=== PATIENT | male | born 1975 | race Caucasian/White ===

== ENCOUNTER 2017-10-31 07:06 | Inpatient (IN) | payer BC ==
[2017-10-31] MEDS ORDERED: LORazepam INJ* 2 MG/ML 1 ML VIAL IV ONE (08:36)
[2017-10-31] MEDS ORDERED: Thiamine IV 100 MG, Folic Acid IV* 1 MG, Multiple Vitamin IV ADULT* 10 ML in NS 0.9% 10... IV ONE ×2 (08:36→09:00)
[2017-10-31] MEDS ORDERED: NS 0.9% 1000 ML* 1,000 ML IV ONE (08:36)
[2017-10-31 08:56] LABS: ABS Basophils 0.1 10^3/ul (0-0.2); ABS Eosinophils 0 10^3/ul (0-0.6); ABS Lymphocytes 1.3 10^3/ul (1.0-4.8); ABS Monocytes 1.1 10^3/ul (0-0.8); ABS Neutrophils 8.6 10^3/ul (1.5-7.7); ABS Nucleated RBC 0 10^3/ul; Eosinophil % 0.1 % (0-6); Hematocrit 44 % (42-52); Hemoglobin 15.8 g/dl (14.0-18.0); Lymphocyte % 11.9 % (25-47); Mean Corpuscular HGB Conc 36 g/dl (31-36); Mean Corpuscular Hemoglobin 31 pg (27-31); Mean Corpuscular Volume 87 fL (80-94); Mean Platelet Volume 7 um3 (7.4-10.4); Nucleated Red Blood Cells % 0; Platelet Count 320 10^3/ul (150-450); Red Blood Count 5.09 10^6/ul (4.0-5.4); Red Cell Distribution Width 14 % (10.5-15); White Blood Count 11.1 10^3/ul (3.5-10.8)
[2017-10-31 09:10] LABS: EGFR Non-African American 124.9 (>60)
[2017-10-31] MEDS ORDERED: LORazepam INJ* 2 MG/ML 1 ML VIAL ONE (09:22)
[2017-10-31] MEDS ORDERED: LORazepam INJ* 2 MG/ML 1 ML VIAL IV PUSH ONE (09:25)
[2017-10-31] MEDS ORDERED: chlordiazePOXIDE CAP* 25 MG PO PRN (10:44)
--- NOTE | 2017-10-31 10:51 | ADMNOTE ---
Subjective Date of Service: 10/31/17 Interval History: ADMISSION HISTORY AND PHYSICAL EXAM: Allergies Allergy/AdvReac Type Severity Reaction Status Date / Time bupropion Allergy See Comment Verified 10/31/17 08:55 ENVIRONMENTAL/SEASONAL Allergy ITCHY Uncoded 10/31/17 07:58 HAYFEVER THROAT,SNEEZE, NASAL DRAINAGE Home Medications Medication Instructions Recorded Confirmed Type Lisinopril TAB* [Prinivil TAB*] 20 mg PO BEDTIME 06/29/13 10/31/17 History Acamprosate (NF) [Campral (NF)] 333 mg PO DAILY 10/31/17 10/31/17 History Amphetamine MIXED SALT TAB* 20 mg PO DAILY 10/31/17 10/31/17 History [Adderall TAB*] FLUoxetine CAP* [Prozac CAP*] 60 mg PO DAILY 10/31/17 10/31/17 History Fenofibrate(NF) [Tricor(NF)] 145 mg PO DAILY 10/31/17 10/31/17 History amLODIPine TAB* [Norvasc 5 mg TAB*] 5 mg PO DAILY 10/31/17 10/31/17 History HPI: The patient states he started driinking 1 L vodka per day about 5 days ago, the last drink last evening. He states before that he was dry for over a year. He goes to [employer] meetings. He took his meds (except Adderall) yesterday but none today. He had emesis x 2 since last night. Family History: Findings - unremarkable Social History: Findings - , is his SDM. No tobacco use. Works for [employer]. Past Medical History: Findings - L shoulder surgery. Mental health admission for suicidal behavior. Review of Systems - Measurements Intake and Output: Intake and Output Last 24 Hours 10/29/17 10/30/17 10/31/17 11/01/17 06:59 06:59 06:59 06:59 Intake Total 1000 Balance 1000 Weight 220 lb Intake: IV Fluids 1000 - Review of Systems Constitutional Symptoms: Positive: Weight Gain - 10 lbs in past year. Dermatology: Positive: Normal HEENT: Positive: Normal Eyes: Positive: Normal Thyroid: Positive: Normal Pulmonary: Positive: Normal Cardiology: Positive: Normal Gastroenterology: Positive: Vomiting Genital - Urinary: Positive: Normal Musculoskeletal: Negative: Joint Pain, Joint Stiffness, Arthritis, Osteoporosis, Low Back Pain , Sciatica, Joint Deformities, Kyphoscoliosis, Other Endocrinology: Positive: Normal Hematologic/Lymphatic: Negative: Anemia, Easy Brusing, Hx Leukemia, Hx Lymphoma, Use of Anticoagulant, Use of Antiplatelet Drugs, Other Neurology: Positive: Normal Psychiatry: Positive: Depression - He denies suicidal ideation at present. Allergic/Immunologic: Negative: Hx Anaphylaxis, Hx Angioedema, Hx Environmental, Hx Seasonal, Athsma, Hx HIV, Immunocompromise, Swollen Glands LymphNodes, Other Objective Active Medications: Acamprosate (Campral (Nf)) 333 mg PO DAILY [facility] PRN Reason: Protocol Amlodipine Besylate (Norvasc Tab*) 5 mg PO DAILY [facility] Chlordiazepoxide (Librium Cap*) 50 mg PO TID [facility] Chlordiazepoxide (Librium Cap*) 25 mg PO TID PRN PRN Reason: ANXIETY Fenofibrate (Tricor(Nf)) 145 mg PO DAILY [facility] PRN Reason: Protocol Fluoxetine HCl (Prozac Cap*) 60 mg PO DAILY [facility] Thiamine HCl 100 mg/ Folic Acid 1 mg/ Multivitamins 10 ml / Sodium Chloride 1, 011.2 mls @ 249.013 mls/hr IV ONCE ONE Stop: 10/31/17 13:03 Last Admin: 10/31/17 09:26 Dose: 249.013 mls/hr Potassium Chloride/Dextrose (D5w 1/2 Ns Kcl 20 Meq 1000 Ml*) 1,000 mls @ 150 mls/hr IV PER RATE [facility] Lisinopril (Prinivil Tab*) 20 mg PO BEDTIME [facility] Vital Signs - 8 hr 10/31/17 10/31/17 10/31/17 07:24 07:52 07:54 Temperature 97.6 F Pulse Rate 123 125 Respiratory 20 Rate Blood Pressure 180/107 179/102 (mmHg) O2 Sat by Pulse 97 97 Oximetry 10/31/17 10/31/17 10/31/17 08:00 08:30 08:52 Temperature Pulse Rate 119 112 Respiratory 16 Rate Blood Pressure 174/104 171/100 (mmHg) O2 Sat by Pulse 96 94 Oximetry 10/31/17 10/31/17 10/31/17 09:00 09:26 09:30 Temperature Pulse Rate 109 120 Respiratory 16 Rate Blood Pressure 167/90 160/96 (mmHg) O2 Sat by Pulse 92 95 Oximetry 10/31/17 10:00 Temperature Pulse Rate Respiratory Rate Blood Pressure 171/95 (mmHg) O2 Sat by Pulse Oximetry Oxygen Devices in Use Now: None Appearance: Alert, supine on ED stretcher. In fair spirits. Looks comfortable. Eyes: No Scleral Icterus Neck: NL Appearance and Movements; NL JVP, No Thyroid Enlargement, Masses Respiratory: Symmetrical Chest Expansion and Respiratory Effort, Clear to Auscultation, Clear to Percussion Cardiovascular: NL Sounds; No Murmurs; No JVD, RRR, No Edema Abdominal: NL Sounds; No Tenderness; No Distention, No Hepatosplenomegaly Extremities: No Edema, No Clubbing, Cyanosis, - Skin: No Rash or Ulcers, No Nodules or Sclerosis, - Neurological: Alert and Oriented x 3, NL Sensation - mild sustention tremor. 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 CHlordiazepoxide scheduled and PRN. SW consult. IV fluids. (2) Hypertension Current Visit: No Status: Chronic Code(s): I10 - ESSENTIAL (PRIMARY) HYPERTENSION SNOMED Code(s): 33669082 Comment: Resume home BP meds DOA (10/31). (3) Depressive disorder Current Visit: No Status: Acute Priority: High Onset Date: 03/20/15 Code (s): F32.9 - MAJOR DEPRESSIVE DISORDER, SINGLE EPISODE, UNSPECIFIED SNOMED Code(s): 18815715 Comment: Continue fluoxetine. Pt denies suicidal ideation at present.
[2017-10-31] MEDS ORDERED: chlordiazePOXIDE CAP* 25 MG ONE (11:44)
[2017-10-31] MEDS ORDERED: chlordiazePOXIDE CAP* 25 MG PO SCH ×2 (12:00)
[2017-10-31] MEDS: D5W 1/2 NS KCl 20 Meq 1000 ML* 1,000 ML IV SCH ×2 (12:16→19:18)
[2017-10-31] MEDS: amLODIPine TAB* 5 MG PO SCH (15:28)
[2017-10-31] MEDS: chlordiazePOXIDE CAP* 25 MG PO PRN ×3 (15:28→23:14)
[2017-10-31] MEDS: FLUoxetine CAP* 20 MG PO SCH (15:28)
[2017-10-31] MEDS: ACAMPROSATE 333 MG PO SCH (16:40)
[2017-10-31] MEDS: Lisinopril TAB* 10 MG PO SCH ×2 (17:12→20:06)
[2017-10-31 17:48] LABS: Urine Appearance Clear; Urine Blood Negative (Negative); Urine Color Straw; Urine Ketones Negative (Negative); Urine Protein Negative (Negative); Urine Urobilinogen Negative (Negative)
--- NOTE | 2017-10-31 18:35 | ED ---
Vanessa Graf Nilda, scribed for Nikhil Marie MD on 10/31/17 at 1114 . Substance Abuse/Use - HPI Summary HPI Summary: This patient is a 42 year old M presenting to [facility] accompanied by father with a chief complaint of withdrawal symptoms from binge use ETOH today. Pt states he relapsed 1 week ago after being sober from ETOH for over 1 year. Pt notes his last drink was at 2000 last night. The patient rates the pain 0/10 in severity. Symptoms aggravated and alleviated by nothing. Patient reports anxiety (panic attacks), but denies SOB, CP, and vomiting. - History Of Current Complaint Chief Complaint: EDDetoxRequest Stated Complaint: DETOX Time Seen by Provider: 10/31/17 08:33 Hx Obtained From: Patient Onset/Duration of Drug/ETOH Abuse: Days Overdose Characteristics: Oral Timing Of Abuse: Binge Use Character: Anxious Aggravating Factor(s): Nothing Alleviating Factor(s): Nothing Related Hx: Drug/Alcohol Last Used @ - yesterday at 1999 - Allergies/Home Medications Allergies/Adverse Reactions: Allergies Allergy/AdvReac Type Severity Reaction Status Date / Time bupropion Allergy See Comment Verified 10/31/17 08:55 ENVIRONMENTAL/SEASONAL Allergy ITCHY Uncoded 10/31/17 07:58 HAYFEVER THROAT,SNEEZE, NASAL DRAINAGE Home Medications: Home Medications Acamprosate (NF) [Campral (NF)] 333 mg PO DAILY 10/31/17 [History Confirmed 11/16] Amphetamine MIXED SALT TAB* [Adderall TAB*] 20 mg PO DAILY 10/31/17 [History Confirmed 10/31/17] FLUoxetine CAP* [Prozac CAP*] 60 mg PO DAILY 10/31/17 [History Confirmed ] Fenofibrate(NF) [Tricor(NF)] 145 mg PO DAILY 10/31/17 [History Confirmed ] amLODIPine TAB* [Norvasc 5 mg TAB*] 5 mg PO DAILY 10/31/17 [History Confirmed ] PMH/Surg Hx/FS Hx/Imm Hx Cardiovascular History: Reports: Hx Hypertension - CONTROL WITH MED Denies: Other Cardiovascular Problems/Disorders Respiratory History: Denies: Other Respiratory Problems/Disorders GI History: Reports: Hx Gastroesophageal Reflux Disease - OCCASIONAL - TUMS, Hx Irritable Bowel Denies: Other GI Disorders Musculoskeletal History: Denies: Hx Arthritis, Hx Osteoporosis, Other Musculoskeletal History Sensory History: Denies: Hx Contacts or Glasses, Hx Hearing Aid Opthamlomology History: Denies: Hx Contacts or Glasses Neurological History: Reports: Hx Seizures - Pt had a seizure in january possibly related to bupropion or alcohol withdrawal Denies: Other Neuro Impairments/Disorders Psychiatric History: Reports: Hx Anxiety, Hx Depression - He denies suicidal ideation at present. , Hx Substance Abuse - alcohol abuse Denies: Hx Eating Disorder, Hx of Violent Episodes Against Others - Surgical History Surgery Procedure, Year, and Place: Right Shoulder Surgery February 13, 2015. rt wrist CTR, 2011, [facility]. RIGHT WRIST GANGLION 2007, [facility]. Hx Anesthesia Reactions: No Infectious Disease History: No Infectious Disease History: Denies: Traveled Outside the [place] in Last 30 Days - Family History Known Family History: Negative: Hypertension, Diabetes - Social History Alcohol Use: Daily Alcohol Amount: 0-4 DRINKS A DAY Substance Use Type: Reports: None Smoking Status (MU): Former Smoker Amount Used/How Often: 1/2 PACK A DAY Have You Smoked in the Last Year: No Review of Systems Negative: Chest Pain Negative: Shortness Of Breath Negative: Vomiting Neurological: Other - ETOH withdrawal Psychological: Other - panic attacks Positive: Anxious All Other Systems Reviewed And Are Negative: Yes Physical Exam - Summary Physical Exam Summary: VITAL SIGNS: Reviewed. GENERAL: Patient is a well-developed and nourished male who appears anxious. Patient is not in any acute respiratory distress. HEAD AND FACE: No signs of trauma. No ecchymosis, hematomas or skull depressions. No sinus tenderness. EYES: PERRLA, EOMI x 2, No injected conjunctiva, no nystagmus. EARS: Hearing grossly intact. Ear canals and tympanic membranes are within normal limits. MOUTH: Oropharynx within normal limits. NECK: Supple, trachea is midline, no adenopathy, no JVD, no carotid bruit, no c- spine tenderness, neck with full ROM. CHEST: Symmetric, no tenderness at palpation LUNGS: Clear to auscultation bilaterally. No wheezing or crackles. CVS: Tachycardic, S1 and S2 present, no murmurs or gallops appreciated. ABDOMEN: Soft, non-tender. No signs of distention. No rebound no guarding, and no masses palpated. Bowel sounds are normal. EXTREMITIES: FROM in all major joints, no edema, no cyanosis or clubbing. NEURO: Alert and oriented x 3. No acute neurological deficits. Speech is normal and follows commands. SKIN: Dry and warm Triage Information Reviewed: Yes Vital Signs On Initial Exam: Initial Vitals Temp Pulse Resp BP Pulse Ox 97.6 F 123 20 180/107 97 10/31/17 07:24 10/31/17 07:24 10/31/17 07:24 10/31/17 07:24 10/31/17 07:24 Vital Signs Reviewed: Yes Diagnostics - Vital Signs Vital Signs Temp Pulse Resp BP Pulse Ox 10/31/17 11:03 97.6 F 114 18 171/95 98 10/31/17 10:00 171/95 10/31/17 09:30 120 160/96 95 10/31/17 09:26 16 10/31/17 09:00 109 167/90 92 10/31/17 08:52 16 10/31/17 08:30 112 171/100 94 10/31/17 08:00 119 174/104 96 10/31/17 07:54 125 97 10/31/17 07:52 179/102 10/31/17 07:24 97.6 F 123 20 180/107 97 - Laboratory Lab Results: Lab Results 10/31/17 10/31/17 Range/Units 08:48 08:48 WBC 11.1 H (3.5-10.8) 10^3/ul RBC 5.09 (4.0-5.4) 10^6/ul Hgb 15.8 (14.0-18.0) g/dl Hct 44 (42-52) % MCV 87 (80-94) fL MCH 31 (27-31) pg MCHC 36 (31-36) g/dl RDW 14 (10.5-15) % Plt Count 320 (150-450) 10^3/ul MPV 7 L (7.4-10.4) um3 Neut % (Auto) 77.5 (38-83) % Lymph % (Auto) 11.9 L (25-47) % [place] % (Auto) 9.6 H (1-9) % Eos % (Auto) 0.1 (0-6) % Baso % (Auto) 0.9 (0-2) % Absolute Neuts (auto) 8.6 H (1.5-7.7) 10^3/ul Absolute Lymphs (auto) 1.3 (1.0-4.8) 10^3/ul Absolute Monos (auto) 1.1 H (0-0.8) 10^3/ul Absolute Eos (auto) 0 (0-0.6) 10^3/ul Absolute Basos (auto) 0.1 (0-0.2) 10^3/ul Absolute Nucleated RBC 0 10^3/ul Nucleated RBC % 0 Sodium 133 (133-145) mmol/L Potassium 3.9 (3.5-5.0) mmol/L Chloride 94 L (101-111) mmol/L Carbon Dioxide 24 (22-32) mmol/L Anion Gap 15 H (2-11) mmol/L BUN 6 (6-24) mg/dL Creatinine 0.70 (0.67-1.17) mg/dL Est GFR ( Amer) 160.6 (>60) Est GFR (Non-Af Amer) 124.9 (>60) BUN/Creatinine Ratio 8.6 (8-20) Glucose 138 H (70-100) mg/dL Calcium 8.4 L (8.6-10.3) mg/dL Total Bilirubin 0.60 (0.2-1.0) mg/dL AST 52 H (13-39) U/L ALT 59 H (7-52) U/L Alkaline Phosphatase 78 (34-104) U/L Total Protein 7.3 (6.4-8.9) g/dL Albumin 4.2 (3.2-5.2) g/dL Globulin 3.1 (2-4) g/dL Albumin/Globulin Ratio 1.4 (1-3) TSH 0.96 (0.34-5.60) mcIU/mL Salicylates < 2.50 (<30) mg/dL Acetaminophen < 15 mcg/mL Serum Alcohol 118 H (<10) mg/dL Result Diagrams: 10/31/17 08:48 10/31/17 08:48 Lab Statement: Any lab studies that have been ordered have been reviewed, and results considered in the medical decision making process. - EKG 0901 Cardiac Rate: Tachycardia EKG Rhythm: Sinus Tachycardia EKG Interpretation: no ST elevations Course/Dx - Course Assessment/Plan: This patient is a 42 year old M presenting to [facility] accompanied by father with a chief complaint of withdrawal symptoms from ETOH today. Pt states he relapsed 1 week ago after being sober from ETOH for over 1 year. Pt notes his last drink was at 2000 last night. The patient rates the pain 0/10 in severity. Symptoms aggravated and alleviated by nothing. Patient reports anxiety (panic attacks), but denies SOB, CP, and vomiting. Patient is hypertensive and tachycardic as well as with tremors and anxious. He seems to be with withdrawal symptoms. He was given the Banana bag, and Ativan. An EKG reveals sinus tachycardia, 114 bpm, no ST elevations. I discussed all the findings and test results with the patient. All questions were answered at patient satisfaction. There were no further complaints or concerns. Lung exam before admission: CTA B/L. Good air exchange. No wheezing or crackles heard. CVS : S1 and S2 present. No murmurs appreciated. Patient is alert and oriented x 3. Patient is hemodynamically stable. [1005] Dr. Marley (hospitalist) agrees to admit pt. Pt will be admitted with Dx of alcohol withdrawal. - Diagnoses Differential Diagnosis/HQI/PQRI: Positive: Alcohol Abuse, Alcohol Withdrawal, Delirium Tremens Provider Diagnoses: Alcohol withdrawal - Physician Notifications Discussed Care Of Patient With: Jay Marley - hospitalist Time Discussed With Above Provider: 10:05 Instructed by Provider To: Admit As Inpatient Discharge - Discharge Plan Condition: Stable Disposition: ADMITTED TO [facility] The documentation as recorded by the Vanessa polo Nilda accurately reflects the service I personally performed and the decisions made by me, Nikhil Marie MD.
[2017-10-31] MEDS: chlordiazePOXIDE CAP* 25 MG PO SCH (19:51)
[2017-10-31] MEDS ORDERED: Lisinopril TAB* 10 MG PO SCH (21:00)
[2017-11-01] MEDS: D5W 1/2 NS KCl 20 Meq 1000 ML* 1,000 ML IV SCH ×4 (02:00→23:16)
[2017-11-01] MEDS ORDERED: hydrALAZINE IV* 20 MG/ML VIAL IV SLOW PU PRN (02:45)
[2017-11-01] MEDS ORDERED: hydrALAZINE IV* 20 MG/ML VIAL ONE (02:52)
[2017-11-01] MEDS: chlordiazePOXIDE CAP* 25 MG PO PRN ×4 (02:54→18:24)
[2017-11-01] MEDS: amLODIPine TAB* 5 MG PO SCH ×2 (07:37→08:57)
[2017-11-01] MEDS: chlordiazePOXIDE CAP* 25 MG PO SCH ×4 (07:37→20:42)
[2017-11-01] MEDS: FLUoxetine CAP* 20 MG PO SCH (07:37)
[2017-11-01] MEDS: CMC:Fenofibrate(NF) 145 MG TAB PO SCH (07:41)
--- NOTE | 2017-11-01 08:03 | PN ---
Subjective Date of Service: 11/01/17 Interval History: Slept poorly. Not hungry. When asked, requested larger dose of meds. Family History: Findings - unremarkable Social History: Findings - , is his SDM. No tobacco use. Works for [employer]. Past Medical History: Findings - L shoulder surgery. Mental health admission for suicidal behavior. Objective Active Medications: Acamprosate (Campral (Nf)) 333 mg PO DAILY [facility] PRN Reason: Protocol Last Admin: 10/31/17 16:40 Dose: Not Given Amlodipine Besylate (Norvasc Tab*) 10 mg PO DAILY [facility] Chlordiazepoxide (Librium Cap*) 75 mg PO TID [facility] Chlordiazepoxide (Librium Cap*) 25 mg PO Q2H PRN PRN Reason: ANXIETY Fenofibrate (Tricor(Nf)) 145 mg PO DAILY [facility] PRN Reason: Protocol Last Admin: 11/01/17 07:41 Dose: 145 mg Fluoxetine HCl (Prozac Cap*) 60 mg PO DAILY [facility] Last Admin: 11/01/17 07:37 Dose: 60 mg Hydralazine HCl (Apresoline Iv*) 10 mg IV SLOW PU Q4H PRN PRN Reason: SBP > 175 Last Admin: 11/01/17 07:37 Dose: 10 mg Potassium Chloride/Dextrose (D5w 1/2 Ns Kcl 20 Meq 1000 Ml*) 1,000 mls @ 150 mls/hr IV PER RATE [facility] Last Admin: 11/01/17 02:00 Dose: 150 mls/hr Lisinopril (Prinivil Tab*) 20 mg PO BEDTIME [facility] Last Admin: 10/31/17 20:06 Dose: Not Given Vital Signs - 8 hr 11/01/17 11/01/17 11/01/17 00:03 02:45 02:54 Pulse Rate 96 96 Respiratory 16 Rate Blood Pressure 163/101 193/112 (mmHg) O2 Sat by Pulse 99 98 Oximetry 11/01/17 11/01/17 11/01/17 04:21 05:23 05:30 Pulse Rate 94 Respiratory 16 18 Rate Blood Pressure 178/102 (mmHg) O2 Sat by Pulse 99 Oximetry 11/01/17 11/01/17 06:27 07:37 Pulse Rate 93 Respiratory 22 Rate Blood Pressure 193/111 (mmHg) O2 Sat by Pulse 100 Oximetry Oxygen Devices in Use Now: None Appearance: Alert, supine in bed. Neutral affect. Diaphoretic as before, sl anxious. Eyes: No Scleral Icterus Respiratory: Symmetrical Chest Expansion and Respiratory Effort, Clear to Auscultation, Clear to Percussion Cardiovascular: NL Sounds; No Murmurs; No JVD, RRR, No Edema Extremities: No Edema, No Clubbing, Cyanosis, - Skin: No Rash or Ulcers, No Nodules or Sclerosis, - - diaphoretic Neurological: Alert and Oriented x 3, NL Sensation - No sustention tremor. Result Diagrams: 10/31/17 08:48 10/31/17 08:48 Additional Lab and Data: Lab Results 10/31/17 10/31/17 Range/Units 08:48 08:48 WBC 11.1 H (3.5-10.8) 10^3/ul RBC 5.09 (4.0-5.4) 10^6/ul Hgb 15.8 (14.0-18.0) g/dl Hct 44 (42-52) % MCV 87 (80-94) fL MCH 31 (27-31) pg MCHC 36 (31-36) g/dl RDW 14 (10.5-15) % Plt Count 320 (150-450) 10^3/ul MPV 7 L (7.4-10.4) um3 Neut % (Auto) 77.5 (38-83) % Lymph % (Auto) 11.9 L (25-47) % [place] % (Auto) 9.6 H (1-9) % Eos % (Auto) 0.1 (0-6) % Baso % (Auto) 0.9 (0-2) % Absolute Neuts (auto) 8.6 H (1.5-7.7) 10^3/ul Absolute Lymphs (auto) 1.3 (1.0-4.8) 10^3/ul Absolute Monos (auto) 1.1 H (0-0.8) 10^3/ul Absolute Eos (auto) 0 (0-0.6) 10^3/ul Absolute Basos (auto) 0.1 (0-0.2) 10^3/ul Absolute Nucleated RBC 0 10^3/ul Nucleated RBC % 0 Sodium 133 (133-145) mmol/L Potassium 3.9 (3.5-5.0) mmol/L Chloride 94 L (101-111) mmol/L Carbon Dioxide 24 (22-32) mmol/L Anion Gap 15 H (2-11) mmol/L BUN 6 (6-24) mg/dL Creatinine 0.70 (0.67-1.17) mg/dL Est GFR ( Amer) 160.6 (>60) Est GFR (Non-Af Amer) 124.9 (>60) BUN/Creatinine Ratio 8.6 (8-20) Glucose 138 H (70-100) mg/dL Calcium 8.4 L (8.6-10.3) mg/dL Total Bilirubin 0.60 (0.2-1.0) mg/dL AST 52 H (13-39) U/L ALT 59 H (7-52) U/L Alkaline Phosphatase 78 (34-104) U/L Total Protein 7.3 (6.4-8.9) g/dL Albumin 4.2 (3.2-5.2) g/dL Globulin 3.1 (2-4) g/dL Albumin/Globulin Ratio 1.4 (1-3) TSH 0.96 (0.34-5.60) mcIU/mL Salicylates < 2.50 (<30) mg/dL Acetaminophen < 15 mcg/mL Serum Alcohol 118 H (<10) mg/dL Assess/Plan/Problems-Billing Assessment: - Patient Problems (1) Alcoholism Current Visit: Yes Status: Acute Code(s): F10.20 - ALCOHOL DEPENDENCE, UNCOMPLICATED SNOMED Code(s): 4145765 Comment: 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 Chlordiazepoxide scheduled and PRN doses both increased 2/3. SW consult. Continue IV fluids. (2) Hypertension Current Visit: No Status: Chronic Code(s): I10 - ESSENTIAL (PRIMARY) HYPERTENSION SNOMED Code(s): 52437009 Comment: Increase amlodipine dose 2/3 AM. (3) Depressive disorder Current Visit: No Status: Acute Priority: High Onset Date: 03/20/15 Code (s): F32.9 - MAJOR DEPRESSIVE DISORDER, SINGLE EPISODE, UNSPECIFIED SNOMED Code(s): 12811704 Comment: Continue fluoxetine. Pt denies suicidal ideation at present.
[2017-11-01] MEDS: ACAMPROSATE 333 MG PO SCH (08:58)
[2017-11-01] MEDS ORDERED: Metoprolol Tartrate TAB* 25 MG PO SCH (11:00)
[2017-11-01] MEDS: Metoprolol Tartrate TAB* 50 mg PO SCH ×2 (11:02→20:42)
[2017-11-01] MEDS ORDERED: Pneumococcal *Vac Polyvalent 0.5 ML VIAL IM ONE (20:00)
[2017-11-01] MEDS: Lisinopril TAB* 10 MG PO SCH (20:52)
[2017-11-02] MEDS: chlordiazePOXIDE CAP* 25 MG PO PRN ×2 (00:02→12:26)
[2017-11-02] MEDS: Benzonatate CAP* 100 MG PO PRN ×2 (00:46→15:10)
[2017-11-02] MEDS: D5W 1/2 NS KCl 20 Meq 1000 ML* 1,000 ML IV SCH (06:01)
[2017-11-02 06:13] LABS: ABS Basophils 0.1 10^3/ul (0-0.2); ABS Eosinophils 0.1 10^3/ul (0-0.6); ABS Lymphocytes 2.5 10^3/ul (1.0-4.8); ABS Monocytes 0.6 10^3/ul (0-0.8); ABS Neutrophils 3.5 10^3/ul (1.5-7.7); ABS Nucleated RBC 0 10^3/ul; Eosinophil % 1.3 % (0-6); Hematocrit 45 % (42-52); Hemoglobin 15.8 g/dl (14.0-18.0); Lymphocyte % 37.7 % (25-47); Mean Corpuscular HGB Conc 35 g/dl (31-36); Mean Corpuscular Hemoglobin 31 pg (27-31); Mean Corpuscular Volume 89 fL (80-94); Mean Platelet Volume 7 um3 (7.4-10.4); Nucleated Red Blood Cells % 0.1; Platelet Count 284 10^3/ul (150-450); Red Blood Count 5.04 10^6/ul (4.0-5.4); Red Cell Distribution Width 15 % (10.5-15); White Blood Count 6.7 10^3/ul (3.5-10.8)
[2017-11-02 06:30] LABS: EGFR Non-African American 146.4 (>60)
[2017-11-02] MEDS: FLUoxetine CAP* 20 MG PO SCH (08:21)
[2017-11-02] MEDS: amLODIPine TAB* 5 MG PO SCH (08:21)
[2017-11-02] MEDS: chlordiazePOXIDE CAP* 25 MG PO SCH ×2 (08:21→15:05)
[2017-11-02] MEDS: ACAMPROSATE 333 MG PO SCH (08:22)
[2017-11-02] MEDS: CMC:Fenofibrate(NF) 145 MG TAB PO SCH (08:22)
[2017-11-02] MEDS: Metoprolol Tartrate TAB* 50 mg PO SCH (08:22)
--- NOTE | 2017-11-02 12:01 | PN ---
Subjective Date of Service: 11/02/17 Interval History: Patient states he is very depressed, states "I feel like someone has ." No suicidal plans. When asked, he states he would like to talk to a psychiatrist. Family History: Findings - unremarkable Social History: Findings - , is his SDM. No tobacco use. Works for [employer]. Past Medical History: Findings - L shoulder surgery. Mental health admission for suicidal behavior. Objective Active Medications: Acamprosate (Campral (Nf)) 333 mg PO DAILY [facility] PRN Reason: Protocol Last Admin: 11/02/17 08:22 Dose: 333 mg Amlodipine Besylate (Norvasc Tab*) 10 mg PO DAILY [facility] Last Admin: 11/02/17 08:21 Dose: 10 mg Benzonatate (Tessalon Cap*) 100 mg PO TID PRN PRN Reason: COUGH Last Admin: 11/02/17 00:46 Dose: 100 mg Chlordiazepoxide (Librium Cap*) 25 mg PO Q2H PRN PRN Reason: ANXIETY Last Admin: 11/02/17 00:02 Dose: 25 mg Chlordiazepoxide (Librium Cap*) 50 mg PO TID [facility] Last Admin: 11/02/17 08:21 Dose: 50 mg Fenofibrate (Tricor(Nf)) 145 mg PO DAILY [facility] PRN Reason: Protocol Last Admin: 11/02/17 08:22 Dose: 145 mg Fluoxetine HCl (Prozac Cap*) 60 mg PO DAILY [facility] Last Admin: 11/02/17 08:21 Dose: 60 mg Hydralazine HCl (Apresoline Iv*) 10 mg IV SLOW PU Q4H PRN PRN Reason: SBP > 175 Last Admin: 11/01/17 07:37 Dose: 10 mg Potassium Chloride/Dextrose (D5w 1/2 Ns Kcl 20 Meq 1000 Ml*) 1,000 mls @ 150 mls/hr IV PER RATE [facility] Last Admin: 11/02/17 06:01 Dose: 150 mls/hr Lisinopril (Prinivil Tab*) 20 mg PO BEDTIME [facility] Last Admin: 11/01/17 20:52 Dose: 20 mg Metoprolol Tartrate (Lopressor Tab*) 50 mg PO BID [facility] Last Admin: 11/02/17 08:22 Dose: 50 mg Vital Signs - 8 hr 11/02/17 11/02/17 11/02/17 04:36 06:03 08:05 Temperature 97.6 F Pulse Rate 62 84 87 Respiratory 18 16 18 Rate Blood Pressure 115/71 136/78 123/74 (mmHg) O2 Sat by Pulse 98 98 100 Oximetry 11/02/17 08:21 Temperature Pulse Rate Respiratory 16 Rate Blood Pressure (mmHg) O2 Sat by Pulse Oximetry Oxygen Devices in Use Now: None Appearance: Alert, supine in bed. Looks depressed but not agitated. Eyes: No Scleral Icterus Extremities: No Edema, No Clubbing, Cyanosis, - Skin: No Rash or Ulcers, No Nodules or Sclerosis, - - No longer diaphoretic Neurological: Alert and Oriented x 3, NL Sensation - No tremor. Result Diagrams: 11/02/17 05:50 11/02/17 05:50 Additional Lab and Data: Lab Results 10/31/17 10/31/17 Range/Units 08:48 08:48 WBC 11.1 H (3.5-10.8) 10^3/ul RBC 5.09 (4.0-5.4) 10^6/ul Hgb 15.8 (14.0-18.0) g/dl Hct 44 (42-52) % MCV 87 (80-94) fL MCH 31 (27-31) pg MCHC 36 (31-36) g/dl RDW 14 (10.5-15) % Plt Count 320 (150-450) 10^3/ul MPV 7 L (7.4-10.4) um3 Neut % (Auto) 77.5 (38-83) % Lymph % (Auto) 11.9 L (25-47) % [place] % (Auto) 9.6 H (1-9) % Eos % (Auto) 0.1 (0-6) % Baso % (Auto) 0.9 (0-2) % Absolute Neuts (auto) 8.6 H (1.5-7.7) 10^3/ul Absolute Lymphs (auto) 1.3 (1.0-4.8) 10^3/ul Absolute Monos (auto) 1.1 H (0-0.8) 10^3/ul Absolute Eos (auto) 0 (0-0.6) 10^3/ul Absolute Basos (auto) 0.1 (0-0.2) 10^3/ul Absolute Nucleated RBC 0 10^3/ul Nucleated RBC % 0 Sodium 133 (133-145) mmol/L Potassium 3.9 (3.5-5.0) mmol/L Chloride 94 L (101-111) mmol/L Carbon Dioxide 24 (22-32) mmol/L Anion Gap 15 H (2-11) mmol/L BUN 6 (6-24) mg/dL Creatinine 0.70 (0.67-1.17) mg/dL Est GFR ( Amer) 160.6 (>60) Est GFR (Non-Af Amer) 124.9 (>60) BUN/Creatinine Ratio 8.6 (8-20) Glucose 138 H (70-100) mg/dL Calcium 8.4 L (8.6-10.3) mg/dL Total Bilirubin 0.60 (0.2-1.0) mg/dL AST 52 H (13-39) U/L ALT 59 H (7-52) U/L Alkaline Phosphatase 78 (34-104) U/L Total Protein 7.3 (6.4-8.9) g/dL Albumin 4.2 (3.2-5.2) g/dL Globulin 3.1 (2-4) g/dL Albumin/Globulin Ratio 1.4 (1-3) TSH 0.96 (0.34-5.60) mcIU/mL Salicylates < 2.50 (<30) mg/dL Acetaminophen < 15 mcg/mL Serum Alcohol 118 H (<10) mg/dL Assess/Plan/Problems-Billing Assessment: - Patient Problems (1) Alcoholism Current Visit: Yes Status: Acute Code(s): F10.20 - ALCOHOL DEPENDENCE, UNCOMPLICATED SNOMED Code(s): 6843728 Comment: 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 LFT's stable. Start taper chlordiazepoxide 2/4 AM. (2) Hypertension Current Visit: No Status: Chronic Code(s): I10 - ESSENTIAL (PRIMARY) HYPERTENSION SNOMED Code(s): 16197162 Comment: Increased amlodipine dose 2/3 AM. Metoprolol started 2/3, BP better on 11/02. (3) Depressive disorder Current Visit: No Status: Acute Priority: High Onset Date: 03/20/15 Code (s): F32.9 - MAJOR DEPRESSIVE DISORDER, SINGLE EPISODE, UNSPECIFIED SNOMED Code(s): 70599795 Comment: Continue fluoxetine. Pt denies suicidal ideation at present. Psychiatry consult requested.
[2017-11-02] MEDS ORDERED: ALPRAZolam TAB* 0.5 MG PO ONE (12:29)
--- NOTE | 2017-11-02 13:32 | PN ---
Progress Note - Progress Note Date of Service: 11/02/17 Note: I discussed the patient with Dr. Evangelista. Pt kathy to go to [facility]. Discharge order entered.
--- NOTE | 2017-11-02 13:34 | PN ---
Progress Note - Progress Note Date of Service: 11/02/17 Note: Time spent on discharge 40 minutes.
[2017-11-02 15:27] VITALS: BP 135/79
[2017-11-02] MEDS ORDERED: Al Hydrox/Mg Hydrox/Simet LIQ* 30 ML UDC PO PRN (16:34)
[2017-11-02] MEDS ORDERED: Acetaminophen TAB* 325 MG PO PRN (16:34)
--- NOTE | 2017-11-03 05:12 | DS ---
CC: Dr. Jaramillo DISCHARGE SUMMARY: DATE OF ADMISSION: 11/01/17 DATE OF DISCHARGE: 11/02/17 HISTORY/HOSPITAL COURSE: This 42-year-old man presented with alcohol withdrawal symptoms. He said ming case wanted to stop drinking. He said he was sober for about a year then starting drinking a liter of v odka a day, about 5 days ago. He had emesis twice before admission. The rest of the history is deta iled in the admission note. The patient was given intravenous fluids and chlordiazepoxide. He was given his blood pressure medic ine. Eventually, the withdrawal symptoms abated and we have started tapering his chlordiazepoxide on the day of discharge. His blood pressure was poorly controlled. His amlodipine was doubled to 10 mg daily. Lisinopril was continued at his home dose. Metoprolol tartrate 50 mg b.i.d. was added. This gave much improved bl ood pressure control. The patient stated he was very depressed and wanted to talk to a psychiatrist and the psychiatrist spoke to him. He agreed to voluntarily be admitted to the mental health unit. He was discharged to the mental health unit. FINAL DIAGNOSES: 1. Acute on chronic alcoholism with alcoholic liver disease. 2. Hypertension. 3. Depression. MEDICATIONS ON TRANSFER: 1. Amlodipine 10 mg daily. 2. Acamprosate 333 mg daily. 3. Benzonatate 100 mg t.i.d. p.r.n. 4. Chlordiazepoxide 50 mg t.i.d. plus 25 mg every 2 hours p.r.n. 5. Fenofibrate 145 mg daily. 6. Fluoxetine 60 mg daily. 7. Lisinopril 20 mg h.s. 8. Metoprolol tartrate 50 mg b.i.d. [id number]/[facility] #: [id number]
[2017-11-03] MEDS ORDERED: Vitamin THERAPEUTIC TAB PO SCH (09:00)
== END 2017-11-02 18:00 | DRG 775 ==
LOC: ED 07:06 → MED 10:37 → OBSVTOIN 11-01 16:00 → INTOOBSV 11-01 16:00
PROVIDERS: ADMIT Internal Medicine; ATTEND Internal Medicine
DX: F10.239 Alcohol dependence with withdrawal, unspecified (principal); K70.9 Alcoholic liver disease, unspecified; F32.9 Major depressive disorder, single episode, unspecified; Y90.5 Blood alcohol level of 100-119 mg/100 ml; I10 Essential (primary) hypertension; J30.2 Other seasonal allergic rhinitis; Z79.899 Other long term (current) drug therapy; Z88.6 Allergy status to analgesic agent; Z87.891 Personal history of nicotine dependence
CPT/HCPCS: 36415; 80053; 80307; 80320; 80329; 81003; 84443; 85025; 93005; 96361; 96374; 99284; A9270-GY; G0378; G0480; J0360; J2060; J3411

== ENCOUNTER 2017-11-02 18:00 | Inpatient (IN) | payer SELFPAY ==
--- NOTE | 2017-11-02 19:24 | HP ---
CONSULTATION REPORT/HISTORY AND PHYSICAL: DATE OF ADMISSION: 11/01/17 HISTORY OF PRESENT ILLNESS: The patient is a 42-year-old male, , father of 2, domiciled, currently unemployed, who was referred by his parents last to request detox after relapsing on alcohol. The patient has a psychiatric history including previous suicidal gesture and he was last admitted to this service in February 2015. Psychiatric consultation was requested by hospitalist Dr. Marley to assess the patient for safety as he was about to complete his medical detox. The patient relates that he was doing fairly well. He has a history of alcohol dependence, he asserts that he had been sober for about a year and until the last weekend. Last weekend, he said his in-laws visited, his [id number], who has a history of alcoholism himself, had some vodka, the patient relapsed and drank vodka with his step-father that entire weekend. His lbamrm-yh-ski found out and informed his who reportedly asked him to leave the house. The patient spent the earlier part of this week at his parents' house. He said he was extremely anxious and he continued drinking to manage anxiety and withdrawal symptoms until this last when he told his father that he needed help and he asked to be driven to this hospital where he was admitted in the medical service for detoxification. The patient reports feeling depressed currently, having passive wish, but he denies active suicidal ideation, intent or plan. He endorses feeling extremely disappointed that he had let his family and himself down. He endorses guilt and feelings of worthlessness, and helplessness. He additionally reports recurrent panic attacks and excessive worrying with muscle tension and irritability. REVIEW OF PSYCHIATRIC SYMPTOMS: The patient denies symptoms of gerardo or psychosis. He denies persistently depressed mood, reports that his current depressive symptoms have been in the context of relapse on alcohol, but he has had anxiety all his life and his symptoms have much worsened since the relapse on alcohol. He denies obsessive thoughts or compulsive rituals. PAST PSYCHIATRIC HISTORY: The patient has a history of 1 previous inpatient psychiatric admission here in February 2015 in a similar context where his confronted him about his drinking and threatened to divorce him and he became acutely suicidal. He said he took his firearm, loaded it, but kept the safety on and texted his asking "why should I not do it!" Eventually he surrendered the firearm and allowed his family to drive him to this hospital. The patient was treated with Prozac and was released with outpatient care with therapist, LEEANN Calixto. He started seeing Dr. Nemo Shields about 6 months ago, is currently prescribed fluoxetine 60 mg daily. MEDICATION HISTORY: The patient recalls previous trials of sertraline and Wellbutrin were not effective. SUICIDE/HOMICIDE HISTORY: The patient denies any other attempt to harm himself other than the one that led to his admission in 2014 when he threatened himself with a firearm. He denies having any access to firearms currently. PAST MEDICAL HISTORY: Remarkable for: 1. Hypercholesterolemia. 2. Hypertension. 3. History of 1 episode of withdrawal seizure. 4. Surgical history of shoulder surgery, status post seizure. He is followed by Dr. Steve Jaramillo at [facility]. LEGAL HISTORY: Denies. VIOLENCE HISTORY: Denies. SUBSTANCE ABUSE HISTORY: The patient explained that he started drinking in high school mostly on weekends, usually 6 packs of beers and he continued through college. After college, he started drinking more. At one point, he was drinking a bottle of wine every day plus vodka. He estimates he was consuming to 4 to 5 drinks daily. That amount continued to increase in the following years. He continued drinking despite marital issues and elevated liver enzymes. He has a history of blackout and at least 1 withdrawal seizure. He has never attended an inpatient drug and alcohol rehabilitation program. He has not attended AA, but he sees a therapists who specializes in substance abuse. Longest periods of abstinence was a year until he relapsed recently. He denies the use of other illicit drugs. He smokes cigarettes occasionally. FAMILY HISTORY: The patient reported family history of alcoholism in his mother and paternal uncle. PERSONAL AND SOCIAL HISTORY: The patient has been for almost 13 years. His is a physician in this hospital. He is also the father of 2 boys who are 6 and 2. The patient is currently unemployed. 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 He reports being close to his sons and distressed that his relapse has caused a strain in his relationship with his . He avidly denies that he would ever take his life, citing his love for his family. PHYSICAL EXAMINATION Please refer to Dr. Marley's history and physical on this patient. LABORATORY DATA: His CBC is within normal limits. Complete metabolic panel shows creatinine of 0.61, nonfasting glucose of 115, AST 52, ALT 54. Urinalysis is within normal limits. Urine toxicology, blood alcohol level was 118 on the day of admission. MENTAL STATUS EXAMINATION: Finds a heavyset 42-year-old white male, who looks his stated age. He is unshaven. He is dressed in the hospital gown, found in his room in the hospitalist service. He appears to be somewhat restless. He complains of high anxiety. He presents as guarded and superficially cooperative. His speech is spontaneous; normal rate, rhythm and volume. His affect is irritable. Mood is anxious. Thoughts are linear and goal directed. No evidence of formal thought disorder and no overt delusions. He denies auditory or visual hallucinations. He avidly denies suicidal ideation or urges to self-mutilate and he contracts for safety. Insight and judgement are fair. Impulse control is fair in this setting. He is alert. He is oriented x3. SUMMARY: The patient is a 42-year-old male with a history of alcohol dependence , alcohol use disorder, who relapsed on alcohol after a year of being sober and this led to his asking him to leave and he continued drinking even after he moved in with his parents and eventually asked his parents to bring in him to this hospital for help. The patient was admitted to the medical service for detoxification. He has completed detoxification with Librium. The patient's family is making arrangements for him to go to an inpatient facility in [place], [place] called [facility] on Friday and the hospitalist had concern given the patient's history of suicidal gesture, his current high level of distress and his anxiety and wanted a consultation to determine whether he would be safe if discharged in the0 community while waiting for rehab. I discussed with the patient and his on the phone, my concerns that people with addictions are most vulnerable during the period of time between detox and waiting for rehabilitation, especially if released in the community. He was at first reluctant, but after speaking to his , he agreed to voluntary admission with discharge as soon as a bed becomes available at [facility] and with his agreement that he will go door to door. DIAGNOSTIC IMPRESSION: Alcohol use disorder, severe with induced mood disorder onset during withdrawal. Alcohol dependence. Unspecified anxiety disorder. Rule out panic disorder. Rule out generalized anxiety disorder. TREATMENT PLAN: Admit to mental health unit, 15-minute checks, full code status. Legal status is voluntary. Initiate comprehensive milieu, individual and group psychotherapeutic support. The patient will be placed on a WAM protocol to monitor him for signs of alcohol withdrawal especially given his history of withdrawal seizures. Medication management; will continue current trial of Fluoxetine. Discharge planning will involve coordination with his family in order for him to be driven from the inpatient psychiatric unit to inpatient rehab door to door. Thank you for the opportunity to consult. TIME SPENT: 60 minutes spent on this consultation. [id number]/[facility] #: [id number] VASYL
[2017-11-02] MEDS ORDERED: Al Hydrox/Mg Hydrox/Simet LIQ* 30 ML UDC PO PRN (21:05)
[2017-11-02] MEDS ORDERED: Acetaminophen TAB* 325 MG PO PRN (21:05)
[2017-11-02] MEDS ORDERED: Benzocaine/Menthol LOZ* 1 LOZENGE MT PRN (21:14)
[2017-11-03] MEDS ORDERED: LORazepam TAB(*) 1 MG ONE (01:21)
[2017-11-03] MEDS ORDERED: LORazepam IM 0-6 mg for WAM protocol IM SCH (05:00)
[2017-11-03] MEDS: LORazepam PO 0-6 for WAM protocol PO SCH ×3 (10:11→22:50)
[2017-11-03] MEDS: Vitamin THERAPEUTIC TAB PO SCH (10:12)
[2017-11-03] MEDS: FLUoxetine CAP* 20 MG PO SCH (10:12)
--- NOTE | 2017-11-03 13:59 | PN ---
Subjective - Subjective Date of Service: 11/03/17 Service Type: 32724 Hosp care 35 min high complexity Subjective: Radha is tearful, feeling embarrassed and ashamed by his relapse. He is agreeable with inpatient rehab and apparently his family has had some contact with the [facility] in [place], [place]. Radha denies SI and states that he wants to get to a rehab [facility] so he can work on getting sober and getting back to his family. I spoke with his , Mita, who is unwilling to enable his alcohol abuse patterns any further. She is quite clear with me on the phone that she will be pursuing a divorce and has made this clear with him as well. Objective - Appearance Appearance: Well Developed/Nourished Dysmorphic Features: No Hygiene: Normal Grooming: Fairly Well Kept - Behavior Psychomotor Activities: Normal Exhibits Abnormal Movement: No - Attitude and Relatedness Attitude and Relatedness: Cooperative Eye Contact: Fair - Speech Quality: Unpressured Latencies: Normal Quantity: Appropriate - Mood Patient's Decription of Mood: "Upset" - Affect Observed Affect: Tearful Affect Consistent with: Dysphoria - Thought Process Patient's Thought Process: Coherent Thought Content: No Passive Wish, No Suicidal Planning, No Homicidal Ideation, No Paranoid Ideation - Sensorium Experiencing Hallucinations: No, Sensorium is Clear Type of Hallucinations: Visual: No, Auditory: No, Command: No - Level of Consciousness Level of Consciousness: Alert Orientation: Yes Intact, Yes Orientated to Time, Yes Orientated to Place, Yes Orientated to Person - Impulse Control Impulse Control: Poor - Insight and Judgement Insight and Judgement: Impaired - Group Participation Particating in Group Activities: No - Medication Management Medication Management Adherence: Yes Assessment - Assessment Merits Inpatient Hospitalization: Consolidate Improvements, Pending Safe DC Plan Inpatient DSM-IV Dx: Alcohol Induced Depressive DO Clinical Impression: 42 y.o. white male with a history of chronic relapsing remitting alcoholism transferred from the inpatient medical service due to depression, anxiety and SI in the context of marital difficulty and recent relapse on alcohol. Plan - Plan Treatment Plan: Name: RADHA MCKOY Birthdate: 1975 [id number] The patient is on the [place] protocol and still demonstrating signs/symptoms of alcohol withdrawal. He has apparently been accepted for transfer to the [facility] for alcohol rehabilitation, pending bed availability tomorrow, November 04. He is also receiving fluoxetine 60mg PO qday. Continued Medication Management: Continue Outpt Medication Medications: Current Medications Acetaminophen (Tylenol Tab*) 650 mg PO Q4H PRN PRN Reason: for pain; or Temp >101 F Al Hydrox/Mg Hydrox/Simethicone (Maalox Plus*) 30 ml PO Q4H PRN PRN Reason: INDIGESTION Fluoxetine HCl (Prozac Cap*) 60 mg PO DAILY COUNT INCLUDES THE [facility] Last Admin: 11/03/17 10:12 Dose: 60 mg Hydroxyzine HCl (Atarax Tab*) 50 mg PO Q6H PRN PRN Reason: ANXIETY Lisinopril (Prinivil Tab*) 20 mg PO BEDTIME KATHRYN Lorazepam (Ativan Tab(*)) 0 - [address] [facility] PARAMETERS KATHRYN PRN Reason: Protocol Last Admin: 11/03/17 10:11 Dose: 2 mg Lorazepam (Ativan Inj*) 0 - [address] [facility] PROTOCOL KATHRYN PRN Reason: Protocol Multivitamins (Theragran Tab*) 1 tab PO DAILY COUNT INCLUDES THE [facility] Last Admin: 11/03/17 10:12 Dose: 1 tab Throat Lozenges (Chloraseptic Debbie*) 1 debbie MT Q6H PRN PRN Reason: SORE THROAT - Discharge Plan Discharge Plan: Drug/Alcohol Rehab
[2017-11-03] MEDS ORDERED: Lisinopril TAB* 10 MG PO SCH (21:00)
[2017-11-03] MEDS: hydrOXYzine HCL TAB* 50 MG PO PRN (22:50)
[2017-11-04] MEDS: Vitamin THERAPEUTIC TAB PO SCH (08:51)
[2017-11-04] MEDS: FLUoxetine CAP* 20 MG PO SCH (08:51)
[2017-11-04] MEDS: hydrOXYzine HCL TAB* 50 MG PO PRN (09:51)
[2017-11-04 10:14] VITALS: BP 134/76
--- NOTE | 2017-11-04 12:51 | DS ---
DATE OF ADMISSION: 11/02/2017. DATE OF DISCHARGE: 11/04/2017. DISCHARGE DIAGNOSES: AXIS I: Alcohol-induced mood disorder; alcohol use disorder. AXIS II: Deferred. AXIS III: Hypercholesterolemia, hypertension, history of shoulder surgery. AXIS IV: Severe, primary support stressors. AXIS V: At the time of admission was 45 and at the time of discharge is 60. CONDITION AT THE TIME OF DISCHARGE: Improved. The patient is no longer displaying signs or symptoms of alcohol withdrawal. He is committed to sobriety. He is very much agreeable with a direct bed-to-bed transfer to the [facility] in [place], [place]. The patient has denied suicidal ideations throughout his brief hospitalization here and has been safe on all checks. He is mostly interested in trying to reconcile with his who is very upset about his relapse. The patient's parents are here and they will be providing him transportation to rehab. The family is in agreement with the discharge plan. MENTAL STATUS EXAM AT THE TIME OF DISCHARGE: The patient is a short, stocky- built, white male with a graying pink. He is calm, cooperative, makes fair eye contact. Mood is euthymic with a somewhat constricted affect. Thought process is linear and goal-directed. Thought content is significant for his desire to pursue inpatient rehab. He is denying suicidal or homicidal ideations. He denies auditory or visual hallucinations. There is no evidence of psychosis. Insight and judgment are fair given his willingness to follow-up with inpatient rehab. Cognitively, he is awake and alert with what would appear to be an average intellect. DISCHARGE INSTRUCTIONS TO THE PATIENT: A. Medications: The patient takes Norvasc 5 mg p.o. daily, Lisinopril 20 mg at bedtime, Tricor 145 mg p.o. daily, Prozac 60 mg p.o. daily, and Campral 333 mg p.o. daily. B. Diet: Regular. C. Activities: As per [facility] protocol. The patient is a nonsmoker. There are no laboratory or diagnostic studies pending at the time of discharge. D. Follow-up care: The patient is a direct transfer to the [facility] in [place], [place]. They will be responsible for all of his outpatient follow-up appointments at his time of discharge from that facility. E. Substance abuse follow-up: The patient is offered and accepts Acamprosate 333 mg daily which is an FDA approved medication for alcohol use disorder. HOSPITAL COURSE - PART A: Reason for admission: The patient is a 42-year-old, , father of two, domiciled, currently unemployed who was referred by his parents for detox, who was seen by the psychiatric consultation service due to some questions of suicidal ideations. Upon presentation on the medical service , the patient had related that he had been doing fairly well, but that he had had a history of alcohol dependence and asserted that he had been sober for approximately a year until approximately one week prior to admission. On the previous weekend he stated that his in-laws visited and his [id number], who also has a history of alcoholism, brought him some vodka. The patient then relapsed and his nhmsez-ss-dml found out and informed his who reportedly asked him to leave the house. The patient spent the rest of the week staying with his parents, but he was extremely anxious and continued drinking to manage his anxiety and withdrawal symptoms until when he was brought to the hospital by his father. The patient did report feeling depressed and anxious and having some passive suicidality, but denied active suicidal ideation, intent or plans. He did endorse feeling extremely disappointed that he had let his family and himself down. He endorsed guilt and feelings of worthlessness and helplessness. In addition, he reported panic attacks and excessive worrying with muscle tension and irritability. HOSPITAL COURSE - PART B: Psychiatric treatment rendered: The patient was admitted to the Adult Behavioral Health Unit where he was placed on q.15 minute checks for his own safety. We did continue his outpatient medication regimen, including Tricor, Prozac, Lisinopril, and Norvasc. We did not continue Acamprosate as this is not available on our formulary. Because the patient continued to display some physiological signs and symptoms of alcohol withdraw, we did place him on the [facility] protocol through which he received three prn doses of Ativan. The patient's suicidality resolved and he almost immediately expressed hopefulness that inpatient rehab would be a helpful treatment. I was able to speak with his , Mita, who indicated that this most recent relapse had been the last straw. She does not want to enable his substance abuse and will be seeking the legal end of their marriage. She felt that it was important that Andres understand this so that he does not have false hopes about them getting back together after rehab. I did share this with Andres and he expressed an understanding that this was in fact his intentions. I asked him again whether he was suicidal and he denied it. His parents are here and ready to take him to [place]. While he was here, he was calm, cooperative, although he did not go to groups. His affect remained slightly constricted, but this was appropriate to his situation. At this time, we feel like he is best served by going to inpatient rehab and we are therefore discharging him today. We wish Andres an amicable resolution of his marital situation and a safe , sober and healthy future. [id number]/[facility] #: [id number] VASYL
== END 2017-11-04 10:25 | disposition home or self-care (01) | DRG 897 ==
LOC: BSU 18:00
PROVIDERS: ADMIT Psychiatry & Neurology Psychiatry; ATTEND Psychiatry & Neurology Psychiatry
DX: F10.24 Alcohol dependence with alcohol-induced mood disorder (principal); F10.239 Alcohol dependence with withdrawal, unspecified; R45.851 Suicidal ideations; E78.00 Pure hypercholesterolemia, unspecified; Y90.5 Blood alcohol level of 100-119 mg/100 ml; I10 Essential (primary) hypertension; F41.9 Anxiety disorder, unspecified; F32.9 Major depressive disorder, single episode, unspecified; Z56.0 Unemployment, unspecified; Z72.0 Tobacco use; Z81.1 Family history of alcohol abuse and dependence
CPT/HCPCS: 99222; 99233; 99238; A9270-GY

== ENCOUNTER 2019-07-02 09:00 | Inpatient (IN) | payer SELFPAY ==
[2019-07-02] MEDS ORDERED: NS 0.9% 1000 ML** 1,000 ML IV ONE (09:32)
--- NOTE | 2019-07-02 09:33 | ED ---
Abdominal Pain/Male - HPI Summary HPI Summary: Patient is a 44-year-old male who presents emergency department for left lower abdominal pain that started yesterday. Pain is intermittent and minimal at this time. Patient describes pain as a cramping sensation. Associated symptoms of nonbloody diarrhea. Denies chest pain, shortness of breath, vomiting, urinary symptoms. Patient notes he has a history of diverticulitis symptoms are similar today. Remote history of alcoholism. Patient otherwise notes history of hypertension. Symptoms are moderate in severity. No current modifying factors. - History of Current Complaint Chief Complaint: EDAbdPain Stated Complaint: DIVERTICULITIS PER PT Time Seen by Provider: 07/02/19 09:17 Hx Obtained From: Patient Pain Intensity: 6 - Allergies/Home Medications Allergies/Adverse Reactions: Allergies Allergy/AdvReac Type Severity Reaction Status Date / Time bupropion Allergy See Comment Verified 10/31/17 08:55 ENVIRONMENTAL/SEASONAL Allergy ITCHY Uncoded 10/31/17 07:58 HAYFEVER THROAT,SNEEZE, NASAL DRAINAGE PMH/Surg Hx/FS Hx/Imm Hx Previously Healthy: Yes Cardiovascular History: Reports: Hx Hypertension - CONTROL WITH MED Denies: Other Cardiovascular Problems/Disorders Respiratory History: Denies: Other Respiratory Problems/Disorders GI History: Reports: Hx Gastroesophageal Reflux Disease - OCCASIONAL - TUMS, Hx Irritable Bowel Denies: Other GI Disorders Musculoskeletal History: Denies: Hx Arthritis, Hx Osteoporosis, Other Musculoskeletal History Sensory History: Denies: Hx Cataracts, Hx Contacts or Glasses, Hx Hearing Aid Opthamlomology History: Denies: Hx Cataracts, Hx Contacts or Glasses Neurological History: Reports: Hx Seizures - Pt had a seizure in january possibly related to bupropion or alcohol withdrawal Denies: Other Neuro Impairments/Disorders Psychiatric History: Reports: Hx Anxiety, Hx Depression - He denies suicidal ideation at present. , Hx Substance Abuse - alcohol abuse Denies: Hx Eating Disorder, Hx of Violent Episodes Against Others - Surgical History Surgery Procedure, Year, and Place: Right Shoulder Surgery February 13, 2015. rt wrist CTR, 2011, [facility]. RIGHT WRIST GANGLION 2007, [facility]. Hx Anesthesia Reactions: No Infectious Disease History: No Infectious Disease History: Denies: Hx Clostridium Difficile, Hx Hepatitis, Traveled Outside the [place] in Last 30 Days - Family History Known Family History: Positive: Non-Contributory Negative: Hypertension, Diabetes - Social History Occupation: Employed Full-time Lives: Alone Alcohol Use: None Alcohol Amount: 0-4 DRINKS A DAY Substance Use Type: Reports: None Smoking Status (MU): Light Every Day Tobacco Smoker Type: Cigarettes Amount Used/How Often: 1/2 PACK A DAY Have You Smoked in the Last Year: No Review of Systems Constitutional: Negative Negative: Fever, Chills Cardiovascular: Negative Negative: Palpitations, Chest Pain Respiratory: Negative Negative: Shortness Of Breath, Cough Positive: Abdominal Pain, Nausea. Negative: Vomiting, Diarrhea Genitourinary: Negative Negative: dysuria, flank pain Neurological: Negative All Other Systems Reviewed And Are Negative: Yes Physical Exam Triage Information Reviewed: Yes Vital Signs On Initial Exam: Initial Vitals Temp Pulse Resp BP Pulse Ox 97 F 117 17 149/99 99 07/02/19 09:07 07/02/19 09:07 07/02/19 09:07 07/02/19 09:07 07/02/19 09:07 Vital Signs Reviewed: Yes Appearance: Positive: Well-Appearing - Pt. sitting up in bed in NAD. Skin: Positive: Warm, Dry Head/Face: Positive: Normal Head/Face Inspection Eyes: Positive: Normal, EOMI Neck: Positive: Supple Respiratory/Lung Sounds: Positive: Clear to Auscultation, Breath Sounds Present Cardiovascular: Positive: Normal, RRR Abdomen Description: Positive: Other: - Obese. Abd. distended with diffuse lower pain on palpation. No rebound or guarding. No CVA tenderness. Musculoskeletal: Positive: Normal, Strength/ROM Intact Neurological: Positive: Normal, CN Intact II-III Psychiatric: Positive: Affect/Mood Appropriate Procedures - Sedation Patient Received Moderate/Deep Sedation with Procedure: No Diagnostics - Vital Signs Vital Signs Temp Pulse Resp BP Pulse Ox 07/02/19 09:07 97 F 117 17 149/99 99 - Laboratory Result Diagrams: 07/02/19 09:28 07/02/19 09:28 Lab Statement: Any lab studies that have been ordered have been reviewed, and results considered in the medical decision making process. Abdominal Pain Male Course/Dx - Course Course Of Treatment: Pt. with lower abd. pain. Tachycardic. Afebrile. Pt. started on IV fluids. Pain is minimal at this time. CT and labs ordered. ECG done at 0948 shows a sinus tachycardia of 110bpm, normal axis, no ST elevation or depression. CBC shows WBC of 15.8, mildly low na, K, cl. Bilirubin 3.10. CRP 250. CT per radiology: IMPRESSION: #. The constellation of findings is most consistent with acute diverticulitis at the level. of the splenic flexure of the colon. Evidence for microperforation with single focus of. free intraperitoneal air and small volume of ascites. Negative for drainable perienteric. abscess collection. Follow-up after therapy suggested to assess for resolution. IV zosyn ordered. Case discussed with surgery, Dr. Portillo, who will consult but states not a surgical case at this point. Case discussed with Dr. Levin, hospitalist, who will accept for admission. - Diagnoses Differential Diagnosis/HQI/PQRI: Appendicitis, Constipation, Diverticulitis, Pancreatitis, Ureteral Stone Provider Diagnoses: Diverticulitis of intestine with perforation without abscess or bleeding Discharge ED - Sign-Out/Discharge Documenting (check all that apply): Patient Departure - Discharge Plan Condition: Stable Disposition: ADMITTED TO [facility] Referrals: Steve Jaramillo MD [Primary Care Provider] - - Billing Disposition and Condition Condition: STABLE Disposition: Admitted to [facility]
[2019-07-02 09:34] LABS: ABS Basophils 0.1 10^3/ul (0-0.2); ABS Lymphocytes 1.9 10^3/ul (1.0-4.8); ABS Monocytes 1.4 10^3/ul (0-0.8); ABS Neutrophils 12.4 10^3/ul (1.5-7.7); Eosinophil % 0.1 %; Hematocrit 49 % (42-52); Hemoglobin 17.7 g/dL (14.0-18.0); Lymphocyte % 12.3 %; Mean Corpuscular HGB Conc 36 g/dL (31-36); Mean Corpuscular Hemoglobin 33 pg (27-31); Mean Corpuscular Volume 92 fL (80-94); Nucleated Red Blood Cells % 0.1; Platelet Count 258 10^3/uL (150-450); Red Blood Count 5.31 10^6 /uL (4.18-5.48); Red Cell Distribution Width 13 % (10-15); White Blood Count 15.8 10^3/uL (3.5-10.8)
[2019-07-02 09:53] LABS: ALT 23 U/L (7-52); AST 19 U/L (13-39); Albumin 4.1 g/dL (3.2-5.2); Albumin/Globulin Ratio 1.2 (1-3); Alkaline Phosphatase 59 U/L (34-104); Anion Gap 11 mmol/L (2-11); BUN/Creatinine Ratio 15.7 (8-20); Blood Urea Nitrogen 13 mg/dL (6-24); C Reactive Protein 250.99 mg/L (<8.01); CO2 Carbon Dioxide 25 mmol/L (22-32); Calcium 8.8 mg/dL (8.6-10.3); Chloride 96 mmol/L (101-111); EGFR African American 122.9 (>60); EGFR Non-African American 101.6 (>60); Globulin 3.3 g/dL (2-4); Glucose 132 mg/dL (70-100); Potassium 3.4 mmol/L (3.5-5.0); Sodium 132 mmol/L (135-145); Total Protein 7.4 g/dL (6.4-8.9)
[2019-07-02] MEDS ORDERED: Iohexol 300* (CONTRAST) 10 ML SDV IV ONE (11:19)
[2019-07-02 11:47] LABS: Urine Appearance Clear; Urine Bilirubin Negative (Negative); Urine Blood Negative (Negative); Urine Color Amber; Urine Glucose Negative (Negative); Urine Ketones Negative (Negative); Urine Nitrite Negative (Negative); Urine Protein Negative (Negative); Urine Specific Gravity 1.009 (1.010-1.030); Urine Urobilinogen Negative (Negative)
[2019-07-02] MEDS ORDERED: Piperacillin/Tazobac ADVAN(*) 3.375 GM in NS 0.9% 100 ML* 100 ML IVPB ONE (12:35)
[2019-07-02] MEDS ORDERED: Piperacillin/Tazobac (*) 3.375 GM BAG ONE (13:02)
[2019-07-02] MEDS ORDERED: Ondansetron INJ* 2 MG/ML VIAL IV PRN (15:17)
[2019-07-02] MEDS ORDERED: hydrALAZINE IV* 20 MG/ML VIAL IV SLOW PU PRN (15:18)
[2019-07-02] MEDS ORDERED: Zosyn per Pharmacy* NOTE FOLLOW UP SCH (16:00)
--- NOTE | 2019-07-02 16:06 | HP ---
AMENDED REPORT NOW INCLUDES DESIGNATED COSIGNER CC: Dr. Steve Jaramillo; Dr. Godwin Portillo, Surgical Service * ADMISSION HISTORY AND PHYSICAL: DATE OF ADMISSION: 07/02/19 PRIMARY CARE PROVIDER: Dr. Steve Jaramillo. ATTENDING FOR THIS ADMISSION: Dr. Ngozi Levin.* (DICTATED BY JAQUELIN MCBRIDE, EDYTA) CHIEF COMPLAINT: Abdominal pain and diarrhea. HISTORY OF PRESENT ILLNESS: Mr. Iraheta is a pleasant 44-year-old male patient with a past medical history of hypertension, depression, hyperlipidemia and diverticulitis, who presents to the emergency department today with complaints of diarrhea and abdominal pain. In the emergency department, he was found to have a marked leukocytosis and also was sent for imaging. CT of the abdomen and pelvis at approximately 9:30 this morning did reveal constellation of findings most consistent with an acute diverticulitis at the level of the splenic flexure of the colon with evidence for microperforation with single focus of free intraperitoneal air and small volume of ascites. It was found to be negative for a drainable perienteric abscess or collection. Followup after therapy suggested to assess for resolution. The emergency department did reach out to Dr. Portillo for surgical consultation. Dr. Portillo did state that the patient should be treated with antibiotics and conservative management and would continue to follow. The hospitalists have been requested to admit the patient to medical service. PAST MEDICAL HISTORY: Hypertension, depression, hyperlipidemia, and previous episode of diverticulitis. MEDICATIONS AT HOME: Include: 1. Lisinopril 20 mg p.o. daily. 2. Fluoxetine 60 mg p.o. daily. 3. TriCor 1 tablet daily. ALLERGIES: To BUPROPION, which caused a seizure. SOCIAL HISTORY: The patient is a light cigarette smoker. Denies any daily alcohol use. Denies any illicit drug use. He works in [employer] services. His person to contact in case of emergency is his father, Cristofer Iraheta, who can be reached at [phone]. Code status is full code. REVIEW OF SYSTEMS: The patient denies any fever, fatigue, or chills. He does describe himself as feeling flushed and somewhat diaphoretic at times. He describes his abdomen as gassy with bouts of diarrhea approximately once every hour. He does have some intermittent abdominal pain, but denies any bloody stools. No nausea or vomiting. No urinary complaints and no further constitutional complaints. PHYSICAL EXAMINATION GENERAL: Mr. Iraheta is a well-appearing male, in no acute distress. VITAL SIGNS: Blood pressure 149/99, heart rate 114, respiratory rate 18, O2 saturation 99% on room air with a temperature of 98.4. HEENT: The patient is atraumatic, normocephalic. PERRLA. Nonicteric sclerae. Oral mucosa is moist. Tongue is midline. NECK: Supple, nontender. No JVD noted. No carotid bruit auscultated. LUNGS: Clear bilaterally to auscultation with no wheezing, rhonchi, or rales. CARDIOVASCULAR: S1 and S2 are present. Rhythm is regular. Rate is tachycardic. No murmurs, gallops, or rubs noted. ABDOMEN: Soft, moderately obese. Some tenderness noted in the left lower quadrant. Hypoactive bowel sounds appreciated. No hepatomegaly or splenomegaly appreciated. : Deferred. MUSCULOSKELETAL: No clubbing, no cyanosis, no edema. He has +2 distal pulses palpable in the lower extremities. Gross motor and sensation are intact. NEUROLOGIC: Intact with no focalities. PSYCHIATRIC: Somewhat anxious, but otherwise, cooperative and appropriate. DIAGNOSTIC STUDIES/LAB DATA: WBCs 15.8, RBCs 5.31, hemoglobin 17.7, hematocrit 49, platelets 258. Sodium 132, potassium 3.4, chloride 96, CO2 of 25 , BUN 13, creatinine 0.83, glucose 132, lactic acid 1.5. Total bilirubin 3.10, AST 19, ALT 23, alk phos 59. Troponin 0.00. CRP 250.99. Total protein 7.4, albumin 4.1, globulin 3.3, lipase is less than 10. Urinalysis is negative for any acute infective process. CT of the abdomen and pelvis is as described in the body of this document above. IMPRESSION: Mr. Iraheta is a 44-year-old male patient with minimal medical history, who presents to the emergency department today with acute diverticulitis with microperforation. PLAN: The patient has been admitted to medical service. 1. Acute diverticulitis with microperforation. As noted above, the ED has reached out to Surgery. Plan for now is conservative medical management. He has been given 1 dose of Zosyn. This will be continued and then dosed per pharmacy. He can have Tylenol for fevers. He is flushed right now. I think he had a subjective fever at home and some sweats, but he is currently afebrile. We will keep him n.p.o. We will start him on lactated Ringer's at 125 mL per hour. We will give him morphine 2 mg q.4 hours as needed for pain and Zofran 4 mg IV q.4 hours as needed for nausea, although currently he does appear to be comfortable. 2. Leukocytosis. This is in the presence of his acute diverticulitis. We will continue to monitor his white count and his CRP. His CRP is quite elevated at this time. We will recheck his CRP tomorrow as well. 3. History of depression. We will continue him on his home medications starting tomorrow. 4. History of hypertension. We will keep him n.p.o. for now. I will give him some IV hydralazine. His blood pressure is elevated. He does express being nervous right now and I think he does also have a pain component. We will place him on IV hydralazine and then continue his p.o. meds tomorrow in addition to his IV hydralazine. 5. For DVT prophylaxis, the patient is low risk given his age and few comorbidities, we will ambulate him as tolerated and SCDs. 6. Code status: He is a full code. 7. Diet: N.p.o. as tolerated. 8. Disposition: Admitted inpatient to medical service. The rest of the patient's course will be determined by further diagnostics, laboratories, and any other input from other providers as warranted during this admission. TIME SPENT: Sixty minutes on admission planning, 50% of which has been spent face- to-face with the patient. JAQUELIN MCBRIDE NP [id number]/[facility] #: [id number] VASYL
[2019-07-02] MEDS: Lactated Ringers 1000 ML Bag* 1,000 ML IV SCH (16:16)
[2019-07-02] MEDS ORDERED: NS 0.9% 100 ML* 0 ML ONE (17:46)
--- NOTE | 2019-07-02 17:46 | CONS ---
CC: Dr. Jaramillo * CONSULTATION REPORT: DATE OF CONSULT: 07/02/19 REFERRING PROVIDER: Velia Hobbs NP, with hospitalist. REASON FOR CONSULT: Left colon diverticulitis. HISTORY OF PRESENT ILLNESS: Mr. Andres Iraheta is a 44-year-old gentleman with past medical history of hypertension, depression, hyperlipidemia, and diverticulitis, who presented to the emergency room with several days of left- sided abdominal discomfort. He felt somewhat bloated and has been having some loose bowel movements over the past day or so. He has been drinking water mainly over the last 24 hours and said that he had a job test yesterday and when his pain worsened he presented to the emergency room today. He denied any fevers. He has had no blood per rectum. He states he has had at least 2 to 3 episodes of left-sided diverticulitis treated as an outpatient with oral antibiotics with good resolution. He has not had a colonoscopy. He has had no blood per rectum, weight loss, or black tarry stools. In the emergency room, he was noted to have a white blood cell count of just under 16,000. Electrolytes, BUN, and creatinine were essentially unremarkable. He has a C-reactive protein of 250 and a lactic acid of 1.5. He underwent a CT scan of the abdomen and pelvis. I did review these images. This shows diverticular disease mainly in the sigmoid colon and areas of the left colon. There is focal inflamed diverticulum at about the splenic flexure of the left colon with some small amount of fluid and at least 1 bubble of extraluminal air, which appears to be in the mesentery. There was some mild mural thickening of the adjacent small bowel. There is no evidence of obstruction or contrast extravasation and there was no remote free air. He has been admitted to the hospitalist service and started on IV antibiotics and surgical consultation was obtained. PAST MEDICAL HISTORY: 1. Obesity. 2. Hypertension. 3. Depression/anxiety disorder. 4. Hyperlipidemia. PAST SURGICAL HISTORY: Past abdominal surgery is none. MEDICATIONS AT HOME: Include: 1. Lisinopril 10 mg daily. 2. Prozac 60 mg daily. ALLERGIES: BUPROPION and environmental. SOCIAL HISTORY: He does not drink. He smokes very occasionally. 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 REVIEW OF SYSTEMS: Otherwise, as per above. PHYSICAL EXAM: Temperature 98.1, pulse 101, blood pressure 140/98, respirations 20. General: Well-developed, well-nourished male who appears to be in no apparent distress. His sclerae were anicteric. Lungs were clear to auscultation with normal respiratory effort. Heart was regular rate and rhythm without murmurs, rubs, or gallops. His abdomen is somewhat distended and slightly firm. He had bowel sounds that were present throughout. There are no prior surgical incisions or hernias noted. He has some mild tenderness in the left side of his abdomen without rebound or guarding. There is no generalized peritonitis. IMPRESSION AND PLAN: Left colon diverticulitis with evidence on the CT scan of a small microperforation with some extraluminal air most likely in the mesentery. He has a leukocytosis and he is slightly tachycardic; however, his physical exam is rather benign with no evidence of peritonitis. He has no evidence of overt sepsis. At this point, I agree with admission and with IV resuscitation and IV antibiotics. We will watch him closely. There was no evidence of any abscess on the CT scan and I suspect that he will improve with IV and subsequent oral antibiotics as an outpatient. I did recommend that he undergo a colonoscopy when he is recovered from this episode to clarify the diagnosis. In addition, a nutrition consultation may be beneficial in terms of dietary change that may prevent future episodes of diverticulitis. Thank you for the consultation. We will follow him closely with you. I discussed the above with Velia Hobbs NP. [id number]/[facility] #: [id number] VASYL
[2019-07-02] MEDS: Piperacillin/Tazobac ADVAN(*) 3.375 GM in NS 0.9% 100 ML* 100 ML IVPB SCH (17:58)
[2019-07-02] MEDS: Morphine INJ* 2 MG/ML 1 ML SYRINGE (TWO MG - NEW SYRINGE VERSION) IV PRN (20:07)
[2019-07-03] MEDS: Morphine INJ* 2 MG/ML 1 ML SYRINGE (TWO MG - NEW SYRINGE VERSION) IV PRN ×2 (00:05→02:23)
[2019-07-03] MEDS: Piperacillin/Tazobac ADVAN(*) 3.375 GM in NS 0.9% 100 ML* 100 ML IVPB SCH ×3 (01:48→17:29)
[2019-07-03] MEDS: Lactated Ringers 1000 ML Bag* 1,000 ML IV SCH ×3 (05:05→22:57)
[2019-07-03 07:10] LABS: ABS Lymphocytes 1.5 10^3/ul (1.0-4.8); ABS Monocytes 0.8 10^3/ul (0-0.8); ABS Neutrophils 8.4 10^3/ul (1.5-7.7); Eosinophil % 0.4 %; Hematocrit 42 % (42-52); Hemoglobin 15.4 g/dL (14.0-18.0); Lymphocyte % 13.7 %; Mean Corpuscular HGB Conc 36 g/dL (31-36); Mean Corpuscular Hemoglobin 33 pg (27-31); Mean Corpuscular Volume 92 fL (80-94); Mean Platelet Volume 8.1 fL (7.4-10.4); Nucleated Red Blood Cells % 0.1; Platelet Count 243 10^3/uL (150-450); Red Blood Count 4.63 10^6 /uL (4.18-5.48); Red Cell Distribution Width 13 % (10-15); White Blood Count 10.8 10^3/uL (3.5-10.8)
[2019-07-03 07:14] LABS: Albumin 3.5 g/dL (3.2-5.2); Albumin/Globulin Ratio 1.1 (1-3); BUN/Creatinine Ratio 14.8 (8-20); Calcium 8.5 mg/dL (8.6-10.3); EGFR African American 201.9 (>60); EGFR Non-African American 166.9 (>60); Globulin 3.2 g/dL (2-4); Potassium 3.6 mmol/L (3.5-5.0); Total Bilirubin 1.6 mg/dL (0.2-1.0); Total Protein 6.7 g/dL (6.4-8.9)
--- NOTE | 2019-07-03 09:31 | PN ---
Subjective Interval History: No acute events overnight. Afebrile 2mg IV morphine at 2am, pain lower abdomen 2/10. was nauseous and got zofran BM 1/2 solid, 1/2 loose leukocytosis resolved. hungry/thirsty no fevers (last night) Objective Active Medications: Diphenhydramine HCl (Benadryl Iv*) 25 mg IV ONCE ONE Stop: 07/04/19 00:00 Fluoxetine HCl (Prozac Cap*) 60 mg PO DAILY [facility] Hydralazine HCl (Apresoline Iv*) 5 mg IV SLOW PU Q6H PRN PRN Reason: sbp >165 dbp >90 Lactated Ringer's (Lactated Ringers 1000 Ml Bag*) 1,000 mls @ 125 mls/hr IV PER RATE [facility] Last Admin: 07/03/19 05:05 Dose: 125 mls/hr Piperacillin Sod/Tazobactam (Sod 3.375 gm/ Sodium Chloride) 100 mls @ 25 mls/ hr IVPB Q8H [facility] Last Admin: 07/03/19 01:48 Dose: 25 mls/hr Morphine Sulfate (Morphine Inj (Syringe))*) 2 mg IV Q2H PRN PRN Reason: PAIN - MODERATE Last Admin: 07/03/19 02:23 Dose: 2 mg Ondansetron HCl (Zofran Inj*) 4 mg IV Q4H PRN PRN Reason: NAUSEA Last Admin: 07/03/19 00:06 Dose: 4 mg Pharmacy Consult (Zosyn Per Pharmacy*) 1 note FOLLOW UP .ZOSYN PER PHARMACY [facility] Vital Signs - 8 hr 07/03/19 07/03/19 07/03/19 02:23 03:25 04:07 Temperature 97.3 F Pulse Rate 100 Respiratory 18 18 18 Rate Blood Pressure 138/83 (mmHg) O2 Sat by Pulse 98 Oximetry 07/03/19 07:15 Temperature 98.1 F Pulse Rate 91 Respiratory 16 Rate Blood Pressure 145/86 (mmHg) O2 Sat by Pulse 97 Oximetry Oxygen Devices in Use Now: None Appearance: NAD Eyes: No Scleral Icterus Ears/Nose/Mouth/Throat: NL Teeth, Lips, Gums Neck: NL Appearance and Movements; NL JVP, Trachea Midline Respiratory: Symmetrical Chest Expansion and Respiratory Effort, Clear to Auscultation Cardiovascular: NL Sounds; No Murmurs; No JVD, RRR Abdominal: - - slight tenderness in RLQ and LLQ Extremities: No Edema Skin: No Rash or Ulcers Neurological: Alert and Oriented x 3 Nutrition: Taking PO's Result Diagrams: 07/03/19 06:20 07/03/19 06:20 Additional Lab and Data: Laboratory Results - last 24 hr 07/02/19 07/02/19 07/02/19 09:28 09:28 10:12 WBC 15.8 H RBC 5.31 Hgb 17.7 Hct 49 MCV 92 MCH 33 H MCHC 36 RDW 13 Plt Count 258 MPV 8.0 Neut % (Auto) 78.4 Lymph % (Auto) 12.3 Rowan % (Auto) 8.6 Eos % (Auto) 0.1 Baso % (Auto) 0.6 Absolute Neuts (auto) 12.4 H Absolute Lymphs (auto) 1.9 Absolute Monos (auto) 1.4 H Absolute Eos (auto) 0.0 Absolute Basos (auto) 0.1 Absolute Nucleated RBC 0.0 Nucleated RBC % 0.1 Sodium 132 L Potassium 3.4 L Chloride 96 L Carbon Dioxide 25 Anion Gap 11 BUN 13 Creatinine 0.83 Est GFR ( Amer) 122.9 Est GFR (Non-Af Amer) 101.6 BUN/Creatinine Ratio 15.7 Glucose 132 H Lactic Acid 1.5 Calcium 8.8 Total Bilirubin 3.10 H AST 19 ALT 23 Alkaline Phosphatase 59 Troponin I 0.00 C-Reactive Protein 250.99 H Total Protein 7.4 Albumin 4.1 Globulin 3.3 Albumin/Globulin Ratio 1.2 Lipase < 10 L Urine Color Urine Appearance Urine pH Ur Specific [place] Urine Protein Urine Ketones Urine Blood Urine Nitrate Urine Bilirubin Urine Urobilinogen Ur Leukocyte Esterase Urine Glucose 07/02/19 07/03/19 07/03/19 11:16 06:20 06:20 WBC 10.8 RBC 4.63 Hgb 15.4 Hct 42 MCV 92 MCH 33 H MCHC 36 RDW 13 Plt Count 243 MPV 8.1 Neut % (Auto) 77.8 Lymph % (Auto) 13.7 Rowan % (Auto) 7.8 Eos % (Auto) 0.4 Baso % (Auto) 0.3 Absolute Neuts (auto) 8.4 H Absolute Lymphs (auto) 1.5 Absolute Monos (auto) 0.8 Absolute Eos (auto) 0.0 Absolute Basos (auto) 0.0 Absolute Nucleated RBC 0.0 Nucleated RBC % 0.1 Sodium 135 Potassium 3.6 Chloride 101 Carbon Dioxide 23 Anion Gap 11 BUN 8 Creatinine 0.54 L Est GFR ( Amer) 201.9 Est GFR (Non-Af Amer) 166.9 BUN/Creatinine Ratio 14.8 Glucose 108 H Lactic Acid Calcium 8.5 L Total Bilirubin 1.60 H D AST 31 ALT 17 Alkaline Phosphatase 53 Troponin I C-Reactive Protein Total Protein 6.7 Albumin 3.5 Globulin 3.2 Albumin/Globulin Ratio 1.1 Lipase Urine Color Usha Urine Appearance Clear Urine pH 6.0 Ur Specific [place] 1.009 L Urine Protein Negative Urine Ketones Negative Urine Blood Negative Urine Nitrate Negative Urine Bilirubin Negative Urine Urobilinogen Negative Ur Leukocyte Esterase Negative Urine Glucose Negative Assess/Plan/Problems-Billing Assessment: 44 yo male PMH HTN, HLD, obesity, depression, diverticulitis p/w abdominal pain , fever, leukocytosis. Acute diverticulitis w/ microperforation. - Patient Problems (1) Diverticulitis Current Visit: Yes Status: Acute Code(s): K57.92 - DVTRCLI OF INTEST, PART UNSP, W/O PERF OR ABSCESS W/O BLEED SNOMED Code(s): 765905946 Comment: Appreciate surgery recs. serial abdominal exams advance diet today to CLD continue zosyn with planned cipro flagyl on discharge nutrition consult pain control with IV morphine prn. outpatient surgery f/u sepsis resolved (leukocytosis, outpatient fevers, tachycardia), no lactic acidosis. (2) Alcoholism Current Visit: No Status: Acute Code(s): F10.20 - ALCOHOL DEPENDENCE, UNCOMPLICATED SNOMED Code(s): 9682992 Comment: Hx of alcoholic liver disease and alcoholism. Denies daily alcohol use on admission. monitor for signs of withdrawal. (3) Depressive disorder Current Visit: No Status: Acute Priority: High Onset Date: 03/20/15 Code (s): F32.9 - MAJOR DEPRESSIVE DISORDER, SINGLE EPISODE, UNSPECIFIED SNOMED Code(s): 23051367 Comment: Continue fluoxetine. mood stable. (4) Generalized anxiety disorder Current Visit: No Status: Chronic Code(s): F41.1 - GENERALIZED ANXIETY DISORDER SNOMED Code(s): 96384562 Comment: continue fluoxetine. (5) HLD (hyperlipidemia) Current Visit: No Status: Chronic Code(s): E78.5 - HYPERLIPIDEMIA, UNSPECIFIED SNOMED Code(s): 01669210 (6) Hypertension Current Visit: No Status: Chronic Code(s): I10 - ESSENTIAL (PRIMARY) HYPERTENSION SNOMED Code(s): 41060124 Comment: restart lisinopril 10mg (home is 20mg) Status and Disposition: medicine inpatient.
[2019-07-03] MEDS: FLUoxetine CAP* 20 MG PO SCH (09:59)
[2019-07-03] MEDS: Lisinopril TAB* 10 MG PO SCH (09:59)
[2019-07-03 11:31] LABS: C Reactive Protein 276.82 mg/L (<8.01)
[2019-07-03] MEDS ORDERED: Cyclobenzaprine TAB* 10 MG PO ONE (13:13)
[2019-07-03] MEDS ORDERED: Acetaminophen TAB* 325 MG PO PRN (20:18)
[2019-07-03] MEDS ORDERED: Cyclobenzaprine TAB* 10 MG PO PRN (22:04)
[2019-07-03] MEDS ORDERED: diPHENhydraMINE IV* 50 MG/ML 1 ml VIAL (BENADRYL) IV ONE (23:59)
[2019-07-04] MEDS: Piperacillin/Tazobac ADVAN(*) 3.375 GM in NS 0.9% 100 ML* 100 ML IVPB SCH ×2 (01:34→09:21)
[2019-07-04] MEDS: Lactated Ringers 1000 ML Bag* 1,000 ML IV SCH (06:59)
[2019-07-04 07:40] LABS: ABS Monocytes 0.8 10^3/ul (0-0.8); ABS Neutrophils 6.5 10^3/ul (1.5-7.7); Eosinophil % 0.6 %; Hematocrit 41 % (42-52); Hemoglobin 14.6 g/dL (14.0-18.0); Lymphocyte % 11.6 %; Mean Corpuscular HGB Conc 36 g/dL (31-36); Mean Corpuscular Hemoglobin 33 pg (27-31); Mean Corpuscular Volume 92 fL (80-94); Mean Platelet Volume 7.9 fL (7.4-10.4); Platelet Count 229 10^3/uL (150-450); Red Blood Count 4.41 10^6 /uL (4.18-5.48); Red Cell Distribution Width 13 % (10-15); White Blood Count 8.4 10^3/uL (3.5-10.8)
[2019-07-04 07:54] LABS: Albumin 3.4 g/dL (3.2-5.2); Albumin/Globulin Ratio 1.1 (1-3); BUN/Creatinine Ratio 13.5 (8-20); C Reactive Protein 174.11 mg/L (<8.01); Calcium 8.5 mg/dL (8.6-10.3); EGFR African American 210.9 (>60); EGFR Non-African American 174.3 (>60); Indirect Bilirubin 0.8 mg/dL (0.3-1.0); Potassium 3.7 mmol/L (3.5-5.0); Total Bilirubin 1.2 mg/dL (0.2-1.0); Total Protein 6.4 g/dL (6.4-8.9)
[2019-07-04] MEDS: FLUoxetine CAP* 20 MG PO SCH (08:33)
[2019-07-04] MEDS: Lisinopril TAB* 10 MG PO SCH (08:34)
[2019-07-04 11:34] VITALS: BP 144/92
[2019-07-04] MEDS ORDERED: Influenza VAC *QUAD* 2019-20* 0.5 ML SYRINGE IM ONE (14:00)
--- NOTE | 2019-07-04 14:22 | DS ---
DISCHARGE SUMMARY: DATE OF ADMISSION: 07/02/19 DATE OF DISCHARGE: 07/04/19 ADMITTING PROVIDER: Velia Hobbs NP PRIMARY CARE PROVIDER: Dr. Steve Jaramillo. ATTENDING PHYSICIAN ON DAY OF DISCHARGE: Teddy Pandey MD CHIEF COMPLAINT: Abdominal pain, diarrhea. PRINCIPAL DIAGNOSES: Acute diverticulitis with microperforation and sepsis. HISTORY OF PRESENT ILLNESS AND HOSPITAL COURSE: Andres Iraheta is a 44-year-old male with PMH of hypertension, depression, hyperlipidemia, diverticulitis ( first diagnosed 5 to 6 years ago), remote alcohol abuse. Please see H&P of Velia Hobbs for full details. Briefly, he developed diarrhea, abdominal pain and fevers at home. He had a CT abdomen and pelvis with IV and oral contrast, which was most consistent with acute diverticulitis at the head of the splenic flexure with evidence of microperforation with single focus of free intraperitoneal air and small volume ascites. No drainable abscess collection. The patient was admitted to the hospitalist service and was started on IV Zosyn and Dr. Portillo of Surgery consulted on the case - he thought the patient was nonoperative candidate. He was initially afebrile, but tachycardic with leukocytosis and meeting sepsis criteria. He had no lactic acidosis. CRP was 250, and then increased to 276 on hospital day #2, but fell to 174 on hospital day #3. He did have resolving tachycardia and his T-max during admission was 101.2 on 07/03/19 at 8 p.m. He was with minimal abdominal pain symptoms that had resolved by day of discharge. He was tolerating clear and then full liquid diet and was reevaluated by General Surgery on day of discharge and thought he was stable for discharge with outpatient colonoscopy in approximately 1 month. His total bilirubin was 3.1 down to 1.6 and then 1.2 on day of discharge. Creatinine was stable. Lipase was negative. Urinalysis was not consistent with infection. MEDICATIONS: Include: 1. Ciprofloxacin 500 mg p.o. q.12 hours for 12 more days (24 tablets, new). 2. Metronidazole 500 mg p.o. t.i.d. for 12 more days (36 tablets, new). 3. Lisinopril 20 mg daily. 4. Prozac 60 mg p.o. daily. FOLLOWUP: The patient should follow up with Dr. Jaramillo within 7 days. He should establish with either GI or General Surgery to get a colonoscopy within approximately 1 month. He was told to return to the hospital with worsening symptoms. DISPOSITION: Home. CONDITION: Improved. DIET: Advanced to low fiber for the next week and then unrestricted, but recommendation for high fiber at that time. TIME SPENT ON DISCHARGE: 35 minutes [id number]/[facility] #: [id number] VASYL
== END 2019-07-04 14:05 | disposition home or self-care (01) | DRG 872 ==
LOC: ED 09:00 → MED 14:45
PROVIDERS: ADMIT Hospitalist; ATTEND Internal Medicine
DX: A41.9 Sepsis, unspecified organism (principal); K57.20 Diverticulitis of large intestine with perforation and abscess without bleeding; R18.8 Other ascites; K70.9 Alcoholic liver disease, unspecified; I10 Essential (primary) hypertension; F32.9 Major depressive disorder, single episode, unspecified; E78.5 Hyperlipidemia, unspecified; F17.210 Nicotine dependence, cigarettes, uncomplicated; D72.829 Elevated white blood cell count, unspecified; F10.21 Alcohol dependence, in remission; F41.1 Generalized anxiety disorder; E66.9 Obesity, unspecified; Z88.8 Allergy status to other drugs, medicaments and biological substances; Z79.899 Other long term (current) drug therapy; Z68.35 Body mass index [BMI] 35.0-35.9, adult
CPT/HCPCS: 36415; 74177; 80048; 80053; 80076; 81003; 83605; 83690; 84484; 85025; 86140; 87040; 90686; 93005; 96361; 96365; 99283; A9270-GY; J2270; J2405; J2543; Q9967